=== PATIENT | male | born 1975 | race Caucasian/White ===

== ENCOUNTER 2017-11-27 12:45 | Day surgery (SDC) | payer OTHER ==
[2017-11-27] MEDS ORDERED: MIDAZOLAM 1 MG/ML 2 ML INJ ×2 (16:11)
[2017-11-27] MEDS ORDERED: FENTAnyl 50 MCG/ML VIAL (16:11)
== END 2017-11-27 19:29 | disposition home or self-care (01) ==
LOC: GIL 12:45
DX: K29.50 Unspecified chronic gastritis without bleeding (principal); K44.9 Diaphragmatic hernia without obstruction or gangrene; E11.9 Type 2 diabetes mellitus without complications; E78.5 Hyperlipidemia, unspecified; I10 Essential (primary) hypertension; Z79.82 Long term (current) use of aspirin; Z79.84 Long term (current) use of oral hypoglycemic drugs
CPT/HCPCS: 43239; 82962; 88305; 88312

== ENCOUNTER 2018-02-25 11:30 | Day surgery (SDC) | payer OTHER ==
[2018-02-25] MEDS ORDERED: FENTAnyl 50 MCG/ML VIAL (17:32)
[2018-02-25] MEDS ORDERED: MIDAZOLAM 1 MG/ML 2 ML INJ ×2 (17:32)
== END 2018-02-25 14:34 | disposition home or self-care (01) ==
LOC: GIL 11:30
DX: K64.0 First degree hemorrhoids (principal); E11.9 Type 2 diabetes mellitus without complications; R78.5 Finding of other psychotropic drug in blood; I10 Essential (primary) hypertension; Z86.73 Personal history of transient ischemic attack (TIA), and cerebral infarction without residual deficits; Z79.82 Long term (current) use of aspirin; Z79.84 Long term (current) use of oral hypoglycemic drugs
CPT/HCPCS: 45378

== ENCOUNTER 2019-02-02 12:03 | Day surgery (SDC) | payer OTHER ==
[2019-02-02] MEDS ORDERED: LIDOCAINE 100 MG SYRINGE (13:43)
[2019-02-02] MEDS ORDERED: FENTAnyl 50 MCG/ML VIAL (13:43)
[2019-02-02] MEDS ORDERED: PROPOFOL 40 ML (13:43)
[2019-02-02] MEDS ORDERED: TRIMETHOBENZAMIDE 100 MG/ML VIAL IM (14:00)
[2019-02-02] MEDS ORDERED: ONDANSETRON 4 MG INJ IV (14:00)
[2019-02-02] MEDS ORDERED: hydrALAzine 20 MG INJ IV (14:00)
[2019-02-02] MEDS ORDERED: MEPERIDINE 25 MG INJ IV (14:00)
[2019-02-02] MEDS ORDERED: OXYCODONE/ACETAMINOPHEN (5/325) TAB PO ×2 (14:00)
[2019-02-02] MEDS ORDERED: DIPHENHYDRAMINE 50 MG INJ IV (14:00)
[2019-02-02] MEDS ORDERED: MIDAZOLAM 1 MG/ML 2 ML INJ IV (14:00)
[2019-02-02] MEDS ORDERED: EPHEDrine SULFATE 50 MG/5 ML SYG IV (14:00)
[2019-02-02] MEDS ORDERED: IPRATROPIUM (NEB) 0.5 MG/2.5 ML AMP HHN (14:00)
[2019-02-02] MEDS ORDERED: LABETALOL HCL 20MG INJ IV (14:00)
[2019-02-02] MEDS ORDERED: FENTAnyl 50 MCG/ML VIAL IV ×3 (14:00)
[2019-02-02] MEDS ORDERED: ALBUTEROL 0.083% (NEB) 2.5 MG/3 ML AMP HHN (14:00)
[2019-02-02] MEDS ORDERED: HYDROmorphONE 1 MG/5 ML IV SYRINGE IV ×3 (14:00)
== END 2019-02-02 15:55 | disposition home or self-care (01) ==
LOC: GIL 12:03
DX: K29.30 Chronic superficial gastritis without bleeding (principal); I10 Essential (primary) hypertension; E11.9 Type 2 diabetes mellitus without complications; Z86.73 Personal history of transient ischemic attack (TIA), and cerebral infarction without residual deficits; Z79.84 Long term (current) use of oral hypoglycemic drugs
CPT/HCPCS: 43239; 82962; 88305; 88312